=== PATIENT | female | born 1970 | race Caucasian/White ===

== ENCOUNTER → 2016-11-18 | Outpatient (CLI) | payer MEDICAID ==
[~2016-11-18] VITALS: Ht 165 cm; Wt 75.0 kg
[~2016-11-18] MED LIST: AZIT-21 PO; CALC-80 PO; CEFP500T4 PO; CETI5TAB6 PO; DIVA250T93 PO; ESTR0.3T PO; FLC1T PO; FLUT16SP22 NS; HUMIRA SQ; HYDR-3729 PO; HYDR1TAB66 PO; MDR10T; MTX2.5T PO; MULT-608 PO; OMG1KC PO; PARO20TA57 PO; POLY IRON; PROP1TAB77 PO; REMICADE; SIMV20TA3 PO; TRAZ50TA67 PO; VALA500T4 PO; VOLTAREN PO; inFLIXimab FOR IV 500 MG in NORMAL SALINE 250 ML IV SCH
[2016-11-18 11:17] LABS: MEAN PLATELET VOLUME 9.5 FL (7.4-10.4); RED BLOOD COUNT 4.11 10^6/uL (4.35-5.85); RED CELL DISTRIBUTION WIDTH 12.6 % (10.0-14.5); WHITE BLOOD COUNT 6.7 10^3/uL (4.3-11.0)
[2016-11-18 11:34] LABS: ALANINE AMINOTRANSFERASE 12 U/L (0-55); ALBUMIN 3.8 G/DL (3.2-4.5); ANION GAP 11 MMOL/L (5-14); ASPARTATE AMINO TRANSFERASE 17 U/L (5-34); BILIRUBIN,TOTAL 0.3 MG/DL (0.1-1.0); BLOOD UREA NITROGEN 7 MG/DL (7-18); BUN/CREATININE RATIO 9; CALCIUM 8.6 MG/DL (8.5-10.1); CARBON DIOXIDE 20 MMOL/L (21-32); CHLORIDE 105 MMOL/L (98-107); CREATININE SERUM 0.81 MG/DL (0.60-1.30); GFR ESTIMATED > 60; GLUCOSE 95 MG/DL (70-105); POTASSIUM 3.8 MMOL/L (3.6-5.0); SODIUM 136 MMOL/L (135-145); TOTAL PROTEIN 7.3 G/DL (6.4-8.2)
[2016-11-18 11:35] VITALS: BP 106/74
[2016-11-18 13:40] VITALS: BP 106/74
== END ==
LOC: SDC 10:36
PROVIDERS: ATTEND Family Medicine
DX: M05.79 Rheumatoid arthritis with rheumatoid factor of multiple sites without organ or systems involvement (principal)
CPT/HCPCS: 36415; 80053; 85027; 85652; 86141; 96365; 96366

== ENCOUNTER → 2017-01-13 | Outpatient (CLI) | payer MEDICAID ==
[~2017-01-13] VITALS: Ht 165 cm; Wt 75.0 kg
[~2017-01-13] MED LIST changes: +inFLIXimab 500 MG/NS 250 ML (EXCEL) IV ONE; -inFLIXimab FOR IV 500 MG in NORMAL SALINE 250 ML IV SCH
[2017-01-13 13:35] LABS: BASOPHILS % (AUTO) 1 % (0-10); EOSINOPHILS # (AUTO) 0.2 10^3/uL (0.0-0.3); EOSINOPHILS % (AUTO) 2 % (0-10); LYMPHOCYTES % (AUTO) 42 % (12-44); MEAN CORPUSCULAR HEMOGLOBIN 30 PG (25-34); MEAN CORPUSCULAR HGB CONC 33 G/DL (32-36); MEAN CORPUSCULAR VOLUME 91 FL (80-99); MEAN PLATELET VOLUME 9.2 FL (7.4-10.4); MONOCYTES # (AUTO) 0.6 X 10^3 (0.0-1.0); MONOCYTES % (AUTO) 9 % (0-12); NEUTROPHILS # (AUTO) 3.2 X 10^3 (1.8-7.8); NEUTROPHILS % (AUTO) 46 % (42-75); PLATELET COUNT 315 10^3/uL (130-400); RED CELL DISTRIBUTION WIDTH 12.4 % (10.0-14.5)
[2017-01-13 13:42] VITALS: BP 119/74
[2017-01-13 13:54] LABS: ALANINE AMINOTRANSFERASE 18 U/L (0-55); ALBUMIN 4.3 G/DL (3.2-4.5); ANION GAP 10 MMOL/L (5-14); ASPARTATE AMINO TRANSFERASE 25 U/L (5-34); BILIRUBIN,TOTAL 0.4 MG/DL (0.1-1.0); BLOOD UREA NITROGEN 5 MG/DL (7-18); BUN/CREATININE RATIO 6; CALCIUM 9.3 MG/DL (8.5-10.1); CARBON DIOXIDE 26 MMOL/L (21-32); CHLORIDE 99 MMOL/L (98-107); CREATININE SERUM 0.79 MG/DL (0.60-1.30); GFR ESTIMATED > 60; GLUCOSE 88 MG/DL (70-105); POTASSIUM 3.7 MMOL/L (3.6-5.0); SODIUM 135 MMOL/L (135-145); TOTAL PROTEIN 7.9 G/DL (6.4-8.2); hs C REACTIVE PROTEIN 0.69 MG/DL (0.00-0.50)
[2017-01-13 13:59] LABS: ERYTHROCYTE SEDIMENTATION RATE 42 MM/HR (0-20)
[2017-01-13 16:08] VITALS: BP 119/74
== END ==
LOC: EDSTATUS 09-13 13:00 → SDC 13:09
PROVIDERS: ATTEND Family Medicine
DX: M05.79 Rheumatoid arthritis with rheumatoid factor of multiple sites without organ or systems involvement (principal)
CPT/HCPCS: 36415; 80053; 85025; 85652; 86141; 96365; 96366

== ENCOUNTER → 2017-02-08 | Outpatient (CLI) | payer MEDICAID ==
[~2017-02-08] MED LIST changes: -inFLIXimab 500 MG/NS 250 ML (EXCEL) IV ONE
--- NOTE | 2017-02-10 16:10 | Diagnostic Imaging Report ---
EXAMINATION: Bilateral screening mammogram with a Computer Aided Detection (CAD) system. INDICATION: Screening. PERSONAL HISTORY: No current complaints stated on the questionnaire. COMPARISON: 09/30/2013. FINDINGS: The breasts are composed of heterogeneously dense parenchyma which may decrease mammographic sensitivity. There is no mass, architectural distortion, or suspicious cluster of calcifications. Allowing for technique and positional differences, no suspicious change is seen. IMPRESSION: Dense breasts with no definite change. ACR BI-RADS Category 2: Benign findings. Result letter will be mailed to the patient. Note: At least 10% of breast cancer is not imaged by mammography. Dictated on workstation # [id number]
== END ==
LOC: RAD 14:53
PROVIDERS: ATTEND Nurse Practitioner
DX: Z12.31 Encounter for screening mammogram for malignant neoplasm of breast (principal)
CPT/HCPCS: 77067

== ENCOUNTER → 2017-03-10 | Outpatient (CLI) | payer MEDICAID ==
[~2017-03-10] VITALS: Ht 162.6 cm; Wt 75.0 kg
[~2017-03-10] MED LIST changes: +inFLIXimab 500 MG/NS 250 ML (EXCEL) IV SCH
[2017-03-10 10:40] VITALS: BP 110/76
[2017-03-10 10:56] LABS: MEAN PLATELET VOLUME 9.4 FL (7.4-10.4); RED BLOOD COUNT 4.37 10^6/uL (4.35-5.85); WHITE BLOOD COUNT 6.7 10^3/uL (4.3-11.0)
[2017-03-10 11:04] LABS: ALANINE AMINOTRANSFERASE 14 U/L (0-55); ANION GAP 15 MMOL/L (5-14); ASPARTATE AMINO TRANSFERASE 24 U/L (5-34); BILIRUBIN,TOTAL 0.4 MG/DL (0.1-1.0); BLOOD UREA NITROGEN 10 MG/DL (7-18); BUN/CREATININE RATIO 11 (0-20); CALCIUM 9.3 MG/DL (8.5-10.1); CARBON DIOXIDE 22 MMOL/L (21-32); CHLORIDE 102 MMOL/L (98-107); CREATININE SERUM 0.89 MG/DL (0.60-1.30); GFR ESTIMATED > 60; GLUCOSE 104 MG/DL (70-105); HEMOLYSIS 87 (-100-29); ICTERUS 0.2 (-100-1.9); LIPEMIA 9 (-100-49); SODIUM 139 MMOL/L (135-145); TOTAL PROTEIN 8.2 GM/DL (6.4-8.2); hs C REACTIVE PROTEIN 0.85 MG/DL (0.00-0.50)
[2017-03-10 11:06] LABS: POTASSIUM 3.8 MMOL/L (3.6-5.0)
[2017-03-10 13:50] VITALS: BP 110/76
== END ==
LOC: SDC 10:22
PROVIDERS: ATTEND Internal Medicine Rheumatology
DX: M05.79 Rheumatoid arthritis with rheumatoid factor of multiple sites without organ or systems involvement (principal); Z79.899 Other long term (current) drug therapy
CPT/HCPCS: 36415; 80053; 85027; 85652; 86141; 96365; 96366

== ENCOUNTER → 2017-05-05 | Outpatient (CLI) | payer MEDICAID ==
[~2017-05-05] VITALS: Ht 162.6 cm; Wt 80.9 kg
[~2017-05-05] MED LIST changes: +ACET-77 PO; +BUSP10TA95 PO
[2017-05-05 13:44] VITALS: BP 121/69
[2017-05-05 13:48] LABS: MEAN PLATELET VOLUME 9.1 FL (7.4-10.4); RED BLOOD COUNT 3.94 10^6/uL (4.35-5.85); RED CELL DISTRIBUTION WIDTH 12.8 % (10.0-14.5); WHITE BLOOD COUNT 8.1 10^3/uL (4.3-11.0)
[2017-05-05 14:08] LABS: ALANINE AMINOTRANSFERASE 17 U/L (0-55); ALBUMIN 3.8 GM/DL (3.2-4.5); ANION GAP 11 MMOL/L (5-14); ASPARTATE AMINO TRANSFERASE 25 U/L (5-34); BILIRUBIN,TOTAL 0.3 MG/DL (0.1-1.0); BLOOD UREA NITROGEN 6 MG/DL (7-18); BUN/CREATININE RATIO 8; CALCIUM 9.1 MG/DL (8.5-10.1); CARBON DIOXIDE 23 MMOL/L (21-32); CHLORIDE 103 MMOL/L (98-107); CREATININE SERUM 0.76 MG/DL (0.60-1.30); GFR ESTIMATED > 60; GLUCOSE 96 MG/DL (70-105); POTASSIUM 3.6 MMOL/L (3.6-5.0); SODIUM 137 MMOL/L (135-145); TOTAL PROTEIN 7.1 GM/DL (6.4-8.2); hs C REACTIVE PROTEIN 0.88 MG/DL (0.00-0.50)
[2017-05-05 16:20] VITALS: BP 121/69
== END ==
LOC: SDC 13:19
PROVIDERS: ATTEND Family Medicine
DX: M05.79 Rheumatoid arthritis with rheumatoid factor of multiple sites without organ or systems involvement (principal); Z79.899 Other long term (current) drug therapy
CPT/HCPCS: 36415; 80053; 85027; 85652; 86141; 96365; 96366; 99211

== ENCOUNTER 2017-05-21 18:55 | Emergency (ER) | payer MEDICAID ==
[~2017-05-21] VITALS: Ht 167.6 cm; Wt 81.6 kg
[~2017-05-21 18:55] MED LIST changes: -inFLIXimab 500 MG/NS 250 ML (EXCEL) IV SCH
[2017-05-21] MEDS ORDERED: LACTATED RINGERS 1,000 ML IV ONE (19:37)
[2017-05-21 19:54] LABS: BILIRUBIN,URINE NEGATIVE (NEGATIVE); KETONES,URINE NEGATIVE (NEGATIVE); LEUKOCYTE ESTERASE ,URINE NEGATIVE (NEGATIVE); NITRITE,URINE NEGATIVE (NEGATIVE); PH,URINE 7 (5-9); PROTEIN,URINE NEGATIVE (NEGATIVE); UROBILINOGEN,URINE NORMAL (NORMAL)
[2017-05-21 20:00] LABS: SQUAMOUS EPITHELIAL CELL,UR 0-2 /HPF
[2017-05-21 20:01] LABS: BASOPHILS # (AUTO) 0.1 10^3/uL (0.0-0.1); BASOPHILS % (AUTO) 0 % (0-10); EOSINOPHILS # (AUTO) 0.2 10^3/uL (0.0-0.3); EOSINOPHILS % (AUTO) 2 % (0-10); LYMPHOCYTES # (AUTO) 2.1 X 10^3 (1.0-4.0); LYMPHOCYTES % (AUTO) 18 % (12-44); MEAN CORPUSCULAR HEMOGLOBIN 31 PG (25-34); MEAN CORPUSCULAR HGB CONC 33 G/DL (32-36); MEAN CORPUSCULAR VOLUME 92 FL (80-99); MEAN PLATELET VOLUME 8.9 FL (7.4-10.4); MONOCYTES # (AUTO) 1.2 X 10^3 (0.0-1.0); MONOCYTES % (AUTO) 11 % (0-12); NEUTROPHILS # (AUTO) 8.2 X 10^3 (1.8-7.8); NEUTROPHILS % (AUTO) 69 % (42-75); PLATELET COUNT 314 10^3/uL (130-400); RED BLOOD COUNT 3.62 10^6/uL (4.35-5.85); RED CELL DISTRIBUTION WIDTH 12.6 % (10.0-14.5); WHITE BLOOD COUNT 11.8 10^3/uL (4.3-11.0)
--- NOTE | 2017-05-21 20:21 | ED General ---
General Chief Complaint: General Problems/Pain Stated Complaint: FEVER/BODY ACHES Nursing Triage Note: PT TO ED 6 W/ C/O POSS FOOD POISONING X6 DAYS AGO, BETTER MONDAY BUT HAS HAD FEVER, BODYACHES, WORSE THIS AFTERNOON. REPORTS A FEVER OF "100.-SOMETHING" THIS AFTERNOON. NO OTHER C/O VOICED Nursing Sepsis Screen: No Definite Risk Source of Information: Patient History of Present Illness Time Seen by Provider: 19:30 Initial Comments C/O BODY ACHES C/O TEMP 101.6 AND SWEATS C/O SLIGHT NAUSEA, NO VOMITING--BUT ATE BREAKFAST, FRIED CHEESE STICKS FOR LUNCH DIARRHEA X 1 NO ABDOMINAL PAIN SYMPTOMS BEGAN ON MONDAY--STATES SYMPTOMS GET BETTER EVERY MORNING ON WAKING THEN STARTS FEELING WORSE THE DAY GOES ON WITH FEVER AND BODY ACHES TOOK HYDROCODONE X 1 THIS AM AND HAD 2 ALEVE AT 1530 URINE WAS DARK A FEW DAYS AGO, BUT HAS BEEN DRINKING MORE FLUIDS AND URINE IS NOW NORMAL--HAS BEEN DRINKING WATER --ATE LEAST SIX 16 OZ BOTTLES OF WATER, PLUS SWEET TEA PT HAS BEEN TO [facility] TODAY, THEN SHOPPING ALL AFTERNOON TODAY. PT STATES SHE HAS HAD PNEUMONIA IN THE PAST AND THIS FEELS THE SAME, BUT NO COUGH AND NO SHORTNESS OF BREATH PT IS ON REMICADE FOR RHEUMATOID ARTHRITIS THOUGHT HAD "FOOD POISONING" A COUPLE OF DAYS AGO--POSSIBLY FROM A CITIZEN OF [place] AND [place] RESTAURANT IN [facility] [place]. BUT PT DID NOT EAT THE SAME FOODS HIM HE HAD NAUSEA/DIARRHEA, FEVER, BODY ACHES HIS SYMPTOMS WERE GONE IN 2 DAYS PCP: M[facility], DR SMITH Allergies and Home Medications Allergies Coded Allergies: morphine (Unverified Allergy, Mild, 11/04/09) Home Medications Acetaminophen 500 Mg Tablet, 500 MG PO UD, #30 Prescribed by: TALA THOMPSON on 05/05/17 1343 Buspirone HCl 10 Mg Tablet, 10 MG PO HS, #30 Prescribed by: TALA THOMPSON on 05/05/17 1343 Calcium Carbonate/Vitamin D3 1 Each Tablet, 1 EACH PO BID, Ref 0 (Reported) Cetirizine Hcl 5 Mg Tablet, 5 MG PO DAILY, (Reported) Estrogens Conjugated 0.3 Mg Tab, 0.3 MG PO DAILY, (Reported) Folic Acid 1 Mg Tab, 1 EACH PO DAILY, Ref 0 (Reported) Hydrocodone/Acetaminophen 1 Each Tablet, 1 TAB PO TID PRN for PAIN, (Reported) Levofloxacin 500 Mg Tablet, 500 MG PO DAILY, #10 Prescribed by: KENNETH BERRY on 05/21/172101 Methotrexate 2.5 Mg Tab, 2 TAB PO WEEKLY, Ref 0 (Reported) TAKES ON MONDAY EACH WEEK Multivitamins 1 Tab Tablet, 1 TAB PO DAILY, Ref 0 (Reported) Paroxetine Hcl 20 Mg Tablet, 40 MG PO DAILY, Ref 0 (Reported) Simvastatin 20 Mg Tablet, 20 MG PO HS, (Reported) Trazodone Hcl 50 Mg Tablet, 50 MG PO HS, (Reported) Valacyclovir Hcl 500 Mg Tablet, 1 TAB PO DAILY, (Reported) Constitutional: see HPI, chills, fever, malaise, weakness EENTM: no symptoms reported Respiratory: no symptoms reported Cardiovascular: no symptoms reported Gastrointestinal: see HPI, No abdominal pain, loss of appetite, nausea, No vomiting Genitourinary: see HPI Musculoskeletal: see HPI (BODY ACHES) Skin: no symptoms reported Psychiatric/Neurological: No Symptoms Reported, Denies Headache Past Najfiqu-Sgrgzp-Aboxjb Hx Patient Social History Alcohol Use: Denies Use Recreational Drug Use: No Smoking Status: Never a Smoker Recent Foreign Travel: No Contact w/Someone Who Travel: No Recent Infectious Disease Expo: No Recent Hopitalizations: No Physical Abuse: No Sexual Abuse: No Mistreated: No Fear: No Immunizations Up To Date Tetanus Booster (TDap): Unknown Date of Pneumonia Vaccine: Nov 30, 2009 Date of Influenza Vaccine: Jul 19, 2016 Seasonal Allergies Seasonal Allergies: Yes Surgeries History of Surgeries: Yes Surgeries: Hysterectomy, Orthopedic, 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 Respiratory History of Respiratory Disorde: Yes Respiratory Disorders: Pneumonia Cardiovascular History of Cardiac Disorders: No Neurological History of Neurological Disord: No Reproductive System Hx Reproductive Disorders: Yes (ENDOMETRIOSIS) Sexually Transmitted Disease: Yes (HERPES) 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, 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 Genitourinary History of Genitourinary Disor: No Gastrointestinal History of Gastrointestinal Di: No Musculoskeletal History of Musculoskeletal Dis: Yes Musculoskeletal Disorders: Rheumatoid Arthritis Endocrine History of Endocrine Disorders: No HEENT History of HEENT Disorders: No Loss of Vision: Bilateral Hearing Impairment: Denies Cancer History of Cancer: No Psychosocial History of Psychiatric Problem: Yes Behavioral Health Disorders: Anxiety Suicide Risk Score: 0 Integumentary History of Skin or Integumenta: No Blood Transfusions History of Blood Disorders: Yes (ANEMIA) Physical Exam Vital Signs Vital Sign - Last 12Hours 05/21/17 19:14 Temp 96.4 Pulse 99 Resp 20 B/P (MAP) 137/74 Pulse Ox 96 O2 Delivery Room Air Capillary Refill : Less Than 3 Seconds General Appearance: No Apparent Distress, WD/WN, Other (TALKS NON-STOP AT LENGTH) HEENT: PERRL/EOMI, TMs Normal, Normal ENT Inspection, Pharynx Normal Neck: Full Range of Motion, Normal Inspection, Non Tender, Supple Respiratory: Normal Breath Sounds, No Accessory Muscle Use, No Respiratory Distress Cardiovascular: Regular Rate, Rhythm, No Edema, No JVD, No Murmur, Normal Peripheral Pulses Gastrointestinal: Normal Bowel Sounds, No Organomegaly, No Pulsatile Mass, Non Tender, Soft Back: Normal Inspection, No CVA Tenderness Extremity: Normal Range of Motion, Non Tender, No Calf Tenderness, No Pedal Edema, Other (ARTHRITIC CHANGES TO HANDS/FINGERS) Neurologic/Psychiatric: Alert, Oriented x3, No Motor/Sensory Deficits, Normal Mood/Affect, 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 Norm as Tested Skin: Normal Color, Warm/Dry Focused Exam Evaluation Lactate Level Lactic Acid Level Progress/Results/Core Measures Results/Orders Lab Results My Orders Medications Given in ED Vital Signs/I&O Blood Pressure Mean: 95 Progress Note : Progress Note NO DETERIORATION IN PT'S CONDITION DURING ER STAY PT WANTS TO GO HOME / IS COMFORTABLE GOING HOME Diagnostic Imaging Comments CXR--RLL INFILTRATE, PENDING RADIOLOGIST REVIEW Reviewed: Reviewed by Me Departure Impression Impression: Primary Impression: Pneumonia Additional Impressions: Hypokalemia Hypomagnesemia RA ON REMICADE Disposition: HOME, SELF-CARE Condition: Stable Departure-Patient Inst. Referrals: JP SMITH MD (PCP/Family) Primary Care Physician Patient Instructions: Community-Acquired Pneumonia, Adult (DC) Add. Discharge Instructions: EQUAL AMOUNTS OF WATER AND GATORADE--ENOUGH SO YOU ARE URINATING EVERY 2-3 HOURS WHILE AWAKE ALTERNATE TYLENOL And MOTRIN EVERY 2-3 HOURS FOR FEVER FOLLOW UP WITH DR. SMITH IN 2-3 DAYS FOR FURTHER CARE RETURN TO ER IF WORSE All discharge instructions reviewed with patient and/or family. Voiced understanding. Scripts Levofloxacin (Levaquin) 500 Mg Tablet 500 MG PO DAILY for INFECTION, #10 TAB Prov: KENNETH BERRY DO 05/21/17 KENNETH BERRY DO May 21, 2017 20:21
[2017-05-21 20:22] LABS: ALANINE AMINOTRANSFERASE 34 U/L (0-55); ALBUMIN 3.6 GM/DL (3.2-4.5); AMYLASE 56 U/L (25-125); ANION GAP 10 MMOL/L (5-14); ASPARTATE AMINO TRANSFERASE 58 U/L (5-34); BILIRUBIN,TOTAL 0.4 MG/DL (0.1-1.0); BLOOD UREA NITROGEN 5 MG/DL (7-18); BUN/CREATININE RATIO 6; CALCIUM 9.2 MG/DL (8.5-10.1); CARBON DIOXIDE 25 MMOL/L (21-32); CHLORIDE 104 MMOL/L (98-107); CREATININE SERUM 0.77 MG/DL (0.60-1.30); GFR ESTIMATED > 60; GLUCOSE 114 MG/DL (70-105); LIPASE 36 U/L (8-78); MAGNESIUM 1.7 MG/DL (1.8-2.4); POTASSIUM 3.2 MMOL/L (3.6-5.0); SODIUM 139 MMOL/L (135-145); TOTAL PROTEIN 7.5 GM/DL (6.4-8.2)
[2017-05-21] MEDS ORDERED: KCL 10 MEQ TAB (MICRO K) PO ONE (20:45)
[2017-05-21] MEDS ORDERED: MAGNESIUM OXIDE (MAG-OX)400 MG TAB PO ONE (20:45)
[2017-05-21] MEDS ORDERED: LEVOFLOXACIN 500 MG TAB (LEVAQUIN) PO ONE (21:00)
[2017-05-21] MEDS ORDERED: cefTRIAXone INJECTION 1,000 MG in NS (IVPB) 50 ML IV ONE (21:00)
[2017-05-21] MEDS ORDERED: LEVO500T2 PO (21:02)
[2017-05-21 21:35] VITALS: BP 132/70
--- NOTE | 2017-05-21 21:39 | Diagnostic Imaging Report ---
EXAMINATION: PA and lateral chest. INDICATION: Bodyaches and nausea. COMPARISON: Prior study from March 14, 2015. FINDINGS: When compared to the prior examination, there are some new patchy opacities demonstrated within the mid right lung on the frontal view. There also appear to be some alveolar infiltrates within the right middle lobe. Left lung demonstrates some chronic interstitial prominence but is otherwise clear. There is no effusion. There is no pneumothorax. The heart size and mediastinal contours are appropriate. Advanced arthritic changes are demonstrated within the shoulders, compatible with the patient's history of rheumatoid arthritis. IMPRESSION: Abnormal alveolar opacities within the mid right lung on the frontal view and within the right middle lobe are suggestive of pneumonia. The findings are superimposed on some background chronic prominence of the interstitial markings. Advanced inflammatory arthritic changes are demonstrated throughout both shoulders. The pulmonary findings should be followed to resolution. Dictated by: Dictated on workstation # [id number]
== END 2017-05-21 21:34 | disposition home or self-care (01) ==
LOC: EDUNIT# 18:55 → ER 18:56
DX: J18.9 Pneumonia, unspecified organism (principal); F41.9 Anxiety disorder, unspecified; H54.0 Blindness, both eyes; M06.9 Rheumatoid arthritis, unspecified; Z98.51 Tubal ligation status; Z90.710 Acquired absence of both cervix and uterus; Z86.19 Personal history of other infectious and parasitic diseases
CPT/HCPCS: 36415; 71020; 80053; 81000; 82150; 83605; 83690; 83735; 85025; 87040; 96361; 96374

== ENCOUNTER → 2017-07-13 | Outpatient (CLI) | payer MEDICAID ==
[~2017-07-13] VITALS: Ht 167.6 cm; Wt 81.8 kg
[~2017-07-13] MED LIST changes: +INFLIXIMAB DYYB IV SCH; +LEVO500T2 PO; +NORMAL SALINE IV SCH; +inFLIXimab FOR IV 500 MG in NORMAL SALINE 250 ML IV SCH
[2017-07-13 12:35] VITALS: BP 114/80
[2017-07-13 12:40] VITALS: BP 114/80
[2017-07-13 13:13] LABS: MEAN PLATELET VOLUME 9.1 FL (7.4-10.4); RED BLOOD COUNT 4.12 10^6/uL (4.35-5.85); WHITE BLOOD COUNT 7.9 10^3/uL (4.3-11.0)
[2017-07-13 13:35] LABS: ALANINE AMINOTRANSFERASE 18 U/L (0-55); ANION GAP 6 MMOL/L (5-14); ASPARTATE AMINO TRANSFERASE 25 U/L (5-34); BILIRUBIN,TOTAL 0.4 MG/DL (0.1-1.0); BLOOD UREA NITROGEN 6 MG/DL (7-18); BUN/CREATININE RATIO 8; CALCIUM 9.4 MG/DL (8.5-10.1); CARBON DIOXIDE 29 MMOL/L (21-32); CHLORIDE 101 MMOL/L (98-107); CREATININE SERUM 0.78 MG/DL (0.60-1.30); GFR ESTIMATED > 60; GLUCOSE 102 MG/DL (70-105); POTASSIUM 3.4 MMOL/L (3.6-5.0); SODIUM 136 MMOL/L (135-145); TOTAL PROTEIN 7.7 GM/DL (6.4-8.2); hs C REACTIVE PROTEIN 0.58 MG/DL (0.00-0.50)
--- NOTE | 2017-07-13 19:06 | Diagnostic Imaging Report ---
INDICATION: Followup pneumonia COMPARISON: 05/21/2017 FINDINGS: Two views of the chest were obtained. Heart size is normal. The pulmonary vessels appear unremarkable. There is no pneumothorax or pleural fluid suspected. There is no mediastinal widening. Aeration of the lungs has shown some improvement from the prior study with decrease in the extent of bilateral infiltrates. There is suggestion of some minimal persistent infiltrate in the medial lung bases as well as within the right upper lobe. No new pulmonary parenchymal abnormality is seen. Chronic arthropathy changes of the shoulders are again noted. IMPRESSION: Appearance of the chest is improved since May with decrease in the extent of bilateral pulmonary infiltrates. There does appear to be some mild persistent infiltrate at the medial lung bases and in the right upper lobe. An additional followup radiograph is recommended. No significant new abnormality is demonstrated. Dictated by: Dictated on workstation # [id number]
== END ==
LOC: SDC 12:35
PROVIDERS: ATTEND Family Medicine
DX: M05.79 Rheumatoid arthritis with rheumatoid factor of multiple sites without organ or systems involvement (principal); Z79.899 Other long term (current) drug therapy
CPT/HCPCS: 36415; 71020; 80053; 85027; 85652; 86141; 96365; 96366

== ENCOUNTER → 2017-08-28 | Outpatient (CLI) | payer MEDICAID ==
[~2017-08-28] VITALS: Ht 167.6 cm; Wt 81.8 kg
[~2017-08-28] MED LIST changes: -inFLIXimab FOR IV 500 MG in NORMAL SALINE 250 ML IV SCH
[2017-08-28 13:30] VITALS: BP 113/75
== END ==
LOC: SDC 13:21
PROVIDERS: ATTEND Family Medicine
DX: M05.79 Rheumatoid arthritis with rheumatoid factor of multiple sites without organ or systems involvement (principal); Z79.899 Other long term (current) drug therapy
CPT/HCPCS: 96365; 96366

== ENCOUNTER → 2017-10-09 | Outpatient (CLI) | payer MEDICAID ==
[~2017-10-09] VITALS: Ht 167.6 cm; Wt 81.8 kg
[2017-10-09 13:10] VITALS: BP 118/76
[2017-10-09 14:20] LABS: RED BLOOD COUNT 3.85 10^6/uL (4.35-5.85); WHITE BLOOD COUNT 7.8 10^3/uL (4.3-11.0)
[2017-10-09 14:41] LABS: ALANINE AMINOTRANSFERASE 22 U/L (0-55); ALBUMIN 3.8 GM/DL (3.2-4.5); ALKALINE PHOSPHATASE 56 U/L (40-136); BILIRUBIN,TOTAL 0.4 MG/DL (0.1-1.0); BUN/CREATININE RATIO 8; CALCIUM 9.1 MG/DL (8.5-10.1); CARBON DIOXIDE 28 MMOL/L (21-32); CHLORIDE 100 MMOL/L (98-107); CREATININE SERUM 0.75 MG/DL (0.60-1.30); GFR ESTIMATED > 60; GLUCOSE 93 MG/DL (70-105); POTASSIUM 3.8 MMOL/L (3.6-5.0); SODIUM 137 MMOL/L (135-145); TOTAL PROTEIN 7.5 GM/DL (6.4-8.2)
== END ==
LOC: SDC 13:04
PROVIDERS: ATTEND Family Medicine
DX: M05.79 Rheumatoid arthritis with rheumatoid factor of multiple sites without organ or systems involvement (principal); Z79.899 Other long term (current) drug therapy
CPT/HCPCS: 36415; 80053; 85027; 85652; 86141; 96365; 96366

== ENCOUNTER → 2017-11-20 | Outpatient (CLI) | payer MEDICAID ==
[~2017-11-20] VITALS: Ht 167.6 cm; Wt 78.5 kg
[2017-11-20 15:10] VITALS: BP 120/77
[2017-11-20 16:26] VITALS: BP 120/77
== END ==
LOC: SDC 13:20
PROVIDERS: ATTEND Family Medicine
DX: M05.79 Rheumatoid arthritis with rheumatoid factor of multiple sites without organ or systems involvement (principal); Z79.899 Other long term (current) drug therapy

== ENCOUNTER → 2017-11-20 | Outpatient (CLI) | payer MEDICAID ==
[~2017-11-20] VITALS: Ht 167.6 cm; Wt 78.5 kg
[~2017-11-20] MED LIST changes: -INFLIXIMAB DYYB IV SCH; -NORMAL SALINE IV SCH
[2017-11-20 14:29] LABS: CHOLESTEROL 207 MG/DL (< 200); HDL CHOLESTEROL 78 MG/DL (40-60); TRIGLYCERIDES 115 MG/DL (<150); VLDL CHOLESTEROL 23 MG/DL (5-40)
[2017-11-20 15:01] VITALS: BP 120/77
== END ==
LOC: SDC 13:24
PROVIDERS: ATTEND Family Medicine
DX: E78.5 Hyperlipidemia, unspecified (principal)
CPT/HCPCS: 36415; 80061

== ENCOUNTER → 2018-02-19 | Outpatient (CLI) | payer MEDICAID ==
[~2018-02-19] VITALS: Ht 167.6 cm; Wt 78.5 kg
[~2018-02-19] MED LIST changes: +INFLIXIMAB DYYB IV SCH; +NORMAL SALINE IV SCH
[2018-02-19 13:13] VITALS: BP 110/77
== END ==
LOC: SDC 13:06
PROVIDERS: ATTEND Family Medicine
DX: M05.79 Rheumatoid arthritis with rheumatoid factor of multiple sites without organ or systems involvement (principal); Z79.899 Other long term (current) drug therapy
CPT/HCPCS: 96365; 96366

== ENCOUNTER → 2018-04-04 | Outpatient (CLI) | payer MEDICAID ==
[~2018-04-04] VITALS: Ht 167.6 cm; Wt 78.5 kg
[~2018-04-04] MED LIST changes: +INFLIXIMAB DYYB IV ONE; -INFLIXIMAB DYYB IV SCH; +NORMAL SALINE IV ONE; -NORMAL SALINE IV SCH
[2018-04-04 13:04] VITALS: BP_SYST 0; BP_SYST 114; BP_DIAS 0; BP_DIAS 71
[2018-04-04 13:34] LABS: HEMOGLOBIN 12.8 G/DL (11.5-16.0); MEAN PLATELET VOLUME 8.7 FL (7.4-10.4); RED BLOOD COUNT 4.1 10^6/uL (4.35-5.85)
[2018-04-04 14:00] LABS: ALANINE AMINOTRANSFERASE 15 U/L (0-55); ALBUMIN 4.1 GM/DL (3.2-4.5); ALKALINE PHOSPHATASE 51 U/L (40-136); BILIRUBIN,TOTAL 0.3 MG/DL (0.1-1.0); BUN/CREATININE RATIO 9; CARBON DIOXIDE 28 MMOL/L (21-32); CHLORIDE 102 MMOL/L (98-107); CREATININE SERUM 0.81 MG/DL (0.60-1.30); GFR ESTIMATED > 60; GLUCOSE 104 MG/DL (70-105); POTASSIUM 3.8 MMOL/L (3.6-5.0); SODIUM 137 MMOL/L (135-145); TOTAL PROTEIN 7.7 GM/DL (6.4-8.2)
== END ==
LOC: SDC 12:58
PROVIDERS: ATTEND Family Medicine
DX: M06.9 Rheumatoid arthritis, unspecified (principal); Z79.899 Other long term (current) drug therapy
CPT/HCPCS: 36415; 80053; 85027; 85652; 86141; 96365; 96366

== ENCOUNTER → 2018-07-12 | Outpatient (CLI) | payer MEDICAID ==
[~2018-07-12] VITALS: Ht 167.6 cm; Wt 78.5 kg
[~2018-07-12] MED LIST changes: +INFLIXIMAB DYYB IV SCH; +NORMAL SALINE IV SCH
[2018-07-12 13:15] VITALS: BP_SYST 100; BP_SYST 108; BP_DIAS 63
[2018-07-12 13:40] LABS: HEMOGLOBIN 12.3 G/DL (11.5-16.0); MEAN PLATELET VOLUME 9.1 FL (7.4-10.4); RED BLOOD COUNT 3.99 10^6/uL (4.35-5.85); RED CELL DISTRIBUTION WIDTH 13.4 % (10.0-14.5); WHITE BLOOD COUNT 11.3 10^3/uL (4.3-11.0)
[2018-07-12 13:55] LABS: ALANINE AMINOTRANSFERASE 16 U/L (0-55); ALBUMIN 4.2 GM/DL (3.2-4.5); ALKALINE PHOSPHATASE 54 U/L (40-136); BILIRUBIN,TOTAL 0.5 MG/DL (0.1-1.0); BUN/CREATININE RATIO 7; CALCIUM 9.1 MG/DL (8.5-10.1); CARBON DIOXIDE 25 MMOL/L (21-32); CHLORIDE 102 MMOL/L (98-107); CREATININE SERUM 0.82 MG/DL (0.60-1.30); GFR ESTIMATED > 60; GLUCOSE 110 MG/DL (70-105); POTASSIUM 3.4 MMOL/L (3.6-5.0); SODIUM 138 MMOL/L (135-145); TOTAL PROTEIN 8.1 GM/DL (6.4-8.2)
== END ==
LOC: SDC 13:09
PROVIDERS: ATTEND Family Medicine
DX: M05.70 Rheumatoid arthritis with rheumatoid factor of unspecified site without organ or systems involvement (principal); Z79.899 Other long term (current) drug therapy
CPT/HCPCS: 36415; 80053; 85027; 85652; 86141; 96365; 96366; Q5102

== ENCOUNTER 2018-08-23 13:14 | Outpatient (CLI) | payer MEDICAID ==
[~2018-08-23] VITALS: Ht 167.6 cm; Wt 78.5 kg
[~2018-08-23 13:14] MED LIST changes: -INFLIXIMAB DYYB IV ONE; -INFLIXIMAB DYYB IV SCH; -NORMAL SALINE IV ONE; -NORMAL SALINE IV SCH
[2018-08-23] MEDS ORDERED: INFLIXIMAB DYYB IV SCH (13:29)
[2018-08-23] MEDS ORDERED: NORMAL SALINE IV SCH (13:29)
[2018-08-23 13:52] LABS: HEMOGLOBIN 12.1 G/DL (11.5-16.0); RED BLOOD COUNT 3.98 10^6/uL (4.35-5.85); RED CELL DISTRIBUTION WIDTH 12.8 % (10.0-14.5); WHITE BLOOD COUNT 6.8 10^3/uL (4.3-11.0)
[2018-08-23 14:18] LABS: ALANINE AMINOTRANSFERASE 13 U/L (0-55); ALBUMIN 4.2 GM/DL (3.2-4.5); ALKALINE PHOSPHATASE 52 U/L (40-136); BILIRUBIN,TOTAL 0.3 MG/DL (0.1-1.0); BUN/CREATININE RATIO 8; CALCIUM 9.6 MG/DL (8.5-10.1); CARBON DIOXIDE 26 MMOL/L (21-32); CHLORIDE 103 MMOL/L (98-107); CREATININE SERUM 0.74 MG/DL (0.60-1.30); GFR ESTIMATED > 60; GLUCOSE 87 MG/DL (70-105); POTASSIUM 3.8 MMOL/L (3.6-5.0); SODIUM 138 MMOL/L (135-145); TOTAL PROTEIN 7.7 GM/DL (6.4-8.2)
[2018-08-23 15:50] VITALS: BP 128/80
== END 2018-08-23 15:50 | disposition home or self-care (01) ==
LOC: SDC 13:14
PROVIDERS: ATTEND Family Medicine
DX: M05.70 Rheumatoid arthritis with rheumatoid factor of unspecified site without organ or systems involvement (principal); Z79.899 Other long term (current) drug therapy
CPT/HCPCS: 36415; 80053; 85027; 85652; 86141; Q5102

== ENCOUNTER → 2018-10-04 | Outpatient (CLI) | payer MEDICAID ==
[~2018-10-04] VITALS: Ht 167.6 cm; Wt 78.5 kg
[~2018-10-04] MED LIST changes: +INFLIXIMAB DYYB IV SCH; +NORMAL SALINE IV SCH
[2018-10-04 13:37] LABS: HEMOGLOBIN 11.9 G/DL (11.5-16.0); MEAN PLATELET VOLUME 8.9 FL (7.4-10.4); RED BLOOD COUNT 4.02 10^6/uL (4.35-5.85); RED CELL DISTRIBUTION WIDTH 13.5 % (10.0-14.5); WHITE BLOOD COUNT 7.7 10^3/uL (4.3-11.0)
[2018-10-04 14:05] LABS: ALANINE AMINOTRANSFERASE 14 U/L (0-55); ALKALINE PHOSPHATASE 62 U/L (40-136); BILIRUBIN,TOTAL 0.4 MG/DL (0.1-1.0); BUN/CREATININE RATIO 8; CALCIUM 10.3 MG/DL (8.5-10.1); CARBON DIOXIDE 27 MMOL/L (21-32); CHLORIDE 103 MMOL/L (98-107); GFR ESTIMATED > 60; GLUCOSE 94 MG/DL (70-105); SODIUM 139 MMOL/L (135-145); TOTAL PROTEIN 8.1 GM/DL (6.4-8.2)
[2018-10-04 15:49] VITALS: BP 119/64
== END ==
LOC: SDC 13:03
PROVIDERS: ATTEND Family Medicine
DX: M06.9 Rheumatoid arthritis, unspecified (principal); Z79.899 Other long term (current) drug therapy
CPT/HCPCS: 36415; 80053; 85027; 85652; 86141; Q5102

== ENCOUNTER 2019-02-21 13:22 | Outpatient (RCR) | payer MEDICAID ==
[2018-11-26 13:47] LABS: HEMOGLOBIN 11.9 G/DL (11.5-16.0); MEAN PLATELET VOLUME 9.3 FL (7.4-10.4); RED CELL DISTRIBUTION WIDTH 13.5 % (10.0-14.5); WHITE BLOOD COUNT 7.8 10^3/uL (4.3-11.0)
[2018-11-26 14:18] LABS: ALANINE AMINOTRANSFERASE 25 U/L (0-55); ALBUMIN 4.1 GM/DL (3.2-4.5); ALKALINE PHOSPHATASE 43 U/L (40-136); BILIRUBIN,TOTAL 0.5 MG/DL (0.1-1.0); BUN/CREATININE RATIO 11; CALCIUM 8.9 MG/DL (8.5-10.1); CARBON DIOXIDE 24 MMOL/L (21-32); CHLORIDE 105 MMOL/L (98-107); CREATININE SERUM 0.83 MG/DL (0.60-1.30); GFR ESTIMATED > 60; GLUCOSE 104 MG/DL (70-105); POTASSIUM 3.8 MMOL/L (3.6-5.0); SODIUM 140 MMOL/L (135-145); TOTAL PROTEIN 7.7 GM/DL (6.4-8.2)
[2018-11-26 16:05] VITALS: BP 119/65
[2019-01-10] MEDS: INFLIXIMAB DYYB IV SCH ×2 (14:05)
[2019-01-10] MEDS: SODIUM CHLORIDE IV SCH ×2 (14:05)
[2019-01-10 15:52] LABS: HEMOGLOBIN 12.1 G/DL (11.5-16.0); MEAN PLATELET VOLUME 9.8 FL (7.4-10.4); RED CELL DISTRIBUTION WIDTH 13.9 % (10.0-14.5); WHITE BLOOD COUNT 7.1 10^3/uL (4.3-11.0)
[2019-01-10 16:08] LABS: ALANINE AMINOTRANSFERASE 23 U/L (0-55); ALBUMIN 4.2 GM/DL (3.2-4.5); ALKALINE PHOSPHATASE 48 U/L (40-136); BILIRUBIN,TOTAL 0.4 MG/DL (0.1-1.0); BUN/CREATININE RATIO 9; CALCIUM 9.3 MG/DL (8.5-10.1); CARBON DIOXIDE 25 MMOL/L (21-32); CHLORIDE 104 MMOL/L (98-107); CREATININE SERUM 0.81 MG/DL (0.60-1.30); GFR ESTIMATED > 60; GLUCOSE 113 MG/DL (70-105); POTASSIUM 3.6 MMOL/L (3.6-5.0); SODIUM 138 MMOL/L (135-145); TOTAL PROTEIN 7.8 GM/DL (6.4-8.2)
[2019-01-10 16:25] VITALS: BP 107/73
[~2019-02-21] VITALS: Ht 167.6 cm; Wt 78.5 kg
[~2019-02-21 13:22] MED LIST changes: +INFLIXIMAB DYYB IV ONE; -INFLIXIMAB DYYB IV SCH; +NORMAL SALINE IV ONE; -NORMAL SALINE IV SCH
[2019-02-21 13:42] LABS: HEMOGLOBIN 12.6 G/DL (11.5-16.0); MEAN PLATELET VOLUME 8.9 FL (7.4-10.4); RED CELL DISTRIBUTION WIDTH 14.1 % (10.0-14.5); WHITE BLOOD COUNT 8.1 10^3/uL (4.3-11.0)
[2019-02-21 13:45] VITALS: BP 123/77
[2019-02-21] MEDS: SODIUM CHLORIDE IV SCH ×2 (14:00)
[2019-02-21] MEDS: INFLIXIMAB DYYB IV SCH ×2 (14:00)
[2019-02-21 14:09] LABS: ALANINE AMINOTRANSFERASE 15 U/L (0-55); ALBUMIN 4.4 GM/DL (3.2-4.5); ALKALINE PHOSPHATASE 52 U/L (40-136); BILIRUBIN,TOTAL 0.4 MG/DL (0.1-1.0); BUN/CREATININE RATIO 7; CALCIUM 9.7 MG/DL (8.5-10.1); CARBON DIOXIDE 27 MMOL/L (21-32); CHLORIDE 103 MMOL/L (98-107); CREATININE SERUM 0.81 MG/DL (0.60-1.30); GFR ESTIMATED > 60; GLUCOSE 77 MG/DL (70-105); POTASSIUM 3.5 MMOL/L (3.6-5.0); SODIUM 139 MMOL/L (135-145); TOTAL PROTEIN 8.4 GM/DL (6.4-8.2)
== END 2019-02-24 | disposition home or self-care (01) ==
LOC: SDC 13:22
PROVIDERS: ATTEND Family Medicine
DX: M06.9 Rheumatoid arthritis, unspecified (principal); Z79.899 Other long term (current) drug therapy
CPT/HCPCS: 36415; 80053; 85027; 85652; 86141; 96365; 96366; Q5102

== ENCOUNTER → 2019-04-04 | Outpatient (CLI) | payer MEDICAID ==
[~2019-04-04] VITALS: Ht 167.6 cm; Wt 78.5 kg
[2019-04-04 15:30] VITALS: BP 119/69
[2019-04-04 16:35] LABS: BASOPHILS # (AUTO) 0.1 10^3/uL (0.0-0.1); BASOPHILS % (AUTO) 1 % (0-10); EOSINOPHILS # (AUTO) 0.2 10^3/uL (0.0-0.3); EOSINOPHILS % (AUTO) 3 % (0-10); HEMATOCRIT 37 % (35-52); HEMOGLOBIN 12.2 G/DL (11.5-16.0); LYMPHOCYTES # (AUTO) 3.1 X 10^3 (1.0-4.0); LYMPHOCYTES % (AUTO) 39 % (12-44); MEAN CORPUSCULAR HEMOGLOBIN 30 PG (25-34); MEAN CORPUSCULAR HGB CONC 33 G/DL (32-36); MEAN CORPUSCULAR VOLUME 92 FL (80-99); MEAN PLATELET VOLUME 10.4 FL (7.4-10.4); MONOCYTES # (AUTO) 0.8 X 10^3 (0.0-1.0); MONOCYTES % (AUTO) 10 % (0-12); NEUTROPHILS # (AUTO) 3.7 X 10^3 (1.8-7.8); NEUTROPHILS % (AUTO) 47 % (42-75); PLATELET COUNT 330 10^3/uL (130-400); WHITE BLOOD COUNT 7.7 10^3/uL (4.3-11.0)
[2019-04-04 16:49] LABS: ALANINE AMINOTRANSFERASE 12 U/L (0-55); ALBUMIN 4.1 GM/DL (3.2-4.5); ALKALINE PHOSPHATASE 50 U/L (40-136); BILIRUBIN,TOTAL 0.3 MG/DL (0.1-1.0); BUN/CREATININE RATIO 10; CALCIUM 9.5 MG/DL (8.5-10.1); CARBON DIOXIDE 28 MMOL/L (21-32); CHLORIDE 104 MMOL/L (98-107); CREATININE SERUM 0.81 MG/DL (0.60-1.30); GFR ESTIMATED > 60; GLUCOSE 96 MG/DL (70-105); POTASSIUM 3.6 MMOL/L (3.6-5.0); SODIUM 138 MMOL/L (135-145); TOTAL PROTEIN 7.8 GM/DL (6.4-8.2)
[2019-04-04 16:54] LABS: ERYTHROCYTE SEDIMENTATION RATE 28 MM/HR (0-30)
== END ==
LOC: SDC 13:09
PROVIDERS: ATTEND Family Medicine
DX: M05.79 Rheumatoid arthritis with rheumatoid factor of multiple sites without organ or systems involvement (principal); Z79.899 Other long term (current) drug therapy
CPT/HCPCS: 36415; 80053; 85025; 85652; 86141; 96365; Q5102

== ENCOUNTER 2019-07-03 13:05 | Outpatient (CLI) | payer MEDICAID ==
[~2019-07-03 13:05] MED LIST changes: -INFLIXIMAB DYYB IV ONE; -NORMAL SALINE IV ONE
[2019-07-03 13:10] VITALS: BP 121/68
[2019-07-03] MEDS ORDERED: INFLIXIMAB DYYB IV ONE (13:31)
[2019-07-03] MEDS ORDERED: NORMAL SALINE IV ONE (13:31)
[2019-07-03 14:52] LABS: HEMOGLOBIN 11.4 G/DL (11.5-16.0); RED CELL DISTRIBUTION WIDTH 13.5 % (10.0-14.5); WHITE BLOOD COUNT 7.6 10^3/uL (4.3-11.0)
[2019-07-03 15:16] LABS: ALANINE AMINOTRANSFERASE 14 U/L (0-55); ALBUMIN 3.8 GM/DL (3.2-4.5); ALKALINE PHOSPHATASE 51 U/L (40-136); BILIRUBIN,TOTAL 0.3 MG/DL (0.1-1.0); BUN/CREATININE RATIO 11; CALCIUM 8.8 MG/DL (8.5-10.1); CARBON DIOXIDE 29 MMOL/L (21-32); CHLORIDE 105 MMOL/L (98-107); CREATININE SERUM 0.79 MG/DL (0.60-1.30); GFR ESTIMATED > 60; GLUCOSE 91 MG/DL (70-105); POTASSIUM 3.4 MMOL/L (3.6-5.0); SODIUM 140 MMOL/L (135-145); TOTAL PROTEIN 7.2 GM/DL (6.4-8.2)
== END 2019-07-03 16:50 | disposition home or self-care (01) ==
LOC: SDC 13:05
PROVIDERS: ATTEND Family Medicine
DX: M05.79 Rheumatoid arthritis with rheumatoid factor of multiple sites without organ or systems involvement (principal); Z79.899 Other long term (current) drug therapy
CPT/HCPCS: 36415; 80053; 85027; 85652; 86141; 96365; 96366; Q5102

== ENCOUNTER → 2019-07-16 | Outpatient (CLI) | payer MEDICAID ==
--- NOTE | 2019-07-16 15:43 | Diagnostic Imaging Report ---
INDICATION: Routine screening. COMPARISON: 02/08/2017 and 09/30/2013. TECHNIQUE: 2D and 3D bilateral screening mammography was performed with CAD. FINDINGS: Both breasts remain heterogeneously dense, limiting the sensitivity of mammography. The parenchymal pattern is stable. No mass or malignant appearing microcalcifications are seen. The axillae are unremarkable. IMPRESSION: No mammographic features suspicious for malignancy are identified. ACR BI-RADS Category 1: Negative. Result letter will be mailed to the patient. Note: At least 10% of breast cancer is not imaged by mammography. Dictated by: Dictated on workstation # [id number]
== END ==
LOC: RAD 13:20
PROVIDERS: ATTEND Nurse Practitioner
DX: Z12.31 Encounter for screening mammogram for malignant neoplasm of breast (principal); Z78.0 Asymptomatic menopausal state
CPT/HCPCS: 77067

== ENCOUNTER → 2019-08-14 | Outpatient (CLI) | payer MEDICAID ==
[~2019-08-14] VITALS: Ht 165.1 cm; Wt 78.2 kg
[~2019-08-14] MED LIST changes: +INFLIXIMAB DYYB IV ONE; +NORMAL SALINE IV ONE
[2019-08-14 13:05] VITALS: BP 120/69
== END ==
LOC: SDC 12:57
PROVIDERS: ATTEND Family Medicine
DX: M05.79 Rheumatoid arthritis with rheumatoid factor of multiple sites without organ or systems involvement (principal); Z79.899 Other long term (current) drug therapy
CPT/HCPCS: 96365; Q5102

== ENCOUNTER → 2019-09-25 | Outpatient (CLI) | payer MEDICAID ==
[~2019-09-25] VITALS: Ht 165.1 cm; Wt 78.2 kg
[2019-09-25 14:03] LABS: HEMOGLOBIN 12.4 G/DL (11.5-16.0); MEAN PLATELET VOLUME 9.1 FL (7.4-10.4); RED CELL DISTRIBUTION WIDTH 13.1 % (10.0-14.5); WHITE BLOOD COUNT 6.6 10^3/uL (4.3-11.0)
[2019-09-25 14:17] LABS: ALANINE AMINOTRANSFERASE 18 U/L (0-55); ALBUMIN 4.2 GM/DL (3.2-4.5); ALKALINE PHOSPHATASE 70 U/L (40-136); BILIRUBIN,TOTAL 0.3 MG/DL (0.1-1.0); BUN/CREATININE RATIO 9; CALCIUM 9.2 MG/DL (8.5-10.1); CARBON DIOXIDE 28 MMOL/L (21-32); CHLORIDE 102 MMOL/L (98-107); CREATININE SERUM 0.81 MG/DL (0.60-1.30); GFR ESTIMATED > 60; GLUCOSE 93 MG/DL (70-105); POTASSIUM 4.2 MMOL/L (3.6-5.0); SODIUM 140 MMOL/L (135-145); TOTAL PROTEIN 7.8 GM/DL (6.4-8.2)
[2019-09-25 16:47] VITALS: BP 115/70
== END ==
LOC: SDC 13:10
PROVIDERS: ATTEND Family Medicine
DX: M05.79 Rheumatoid arthritis with rheumatoid factor of multiple sites without organ or systems involvement (principal); Z79.899 Other long term (current) drug therapy
CPT/HCPCS: 36415; 80053; 85027; 85652; 86141; 96365; 96366; Q5102

== ENCOUNTER → 2019-11-06 | Outpatient (CLI) | payer MEDICAID ==
[~2019-11-06] VITALS: Ht 165.1 cm; Wt 78.2 kg
[~2019-11-06] MED LIST changes: -ACET-77 PO; +ACET-78 PO
[2019-11-06 16:15] VITALS: BP 125/77
== END ==
LOC: SDC 12:44
PROVIDERS: ATTEND Family Medicine
DX: M05.79 Rheumatoid arthritis with rheumatoid factor of multiple sites without organ or systems involvement (principal); Z79.899 Other long term (current) drug therapy
CPT/HCPCS: 96365; 96366; Q5102

== ENCOUNTER → 2019-12-18 | Outpatient (CLI) | payer MEDICAID ==
[~2019-12-18] VITALS: Ht 165.1 cm; Wt 78.2 kg
[2019-12-18 13:43] LABS: HEMOGLOBIN 12.4 G/DL (11.5-16.0); MEAN PLATELET VOLUME 9.2 FL (7.4-10.4); RED CELL DISTRIBUTION WIDTH 13.8 % (10.0-14.5); WHITE BLOOD COUNT 6.4 10^3/uL (4.3-11.0)
[2019-12-18 14:07] LABS: ALANINE AMINOTRANSFERASE 24 U/L (0-55); ALBUMIN 4.3 GM/DL (3.2-4.5); ALKALINE PHOSPHATASE 51 U/L (40-136); BILIRUBIN,TOTAL 0.5 MG/DL (0.1-1.0); BUN/CREATININE RATIO 8; CALCIUM 9.8 MG/DL (8.5-10.1); CARBON DIOXIDE 21 MMOL/L (21-32); CHLORIDE 102 MMOL/L (98-107); GFR ESTIMATED > 60; GLUCOSE 83 MG/DL (70-105); POTASSIUM 3.7 MMOL/L (3.6-5.0); SODIUM 137 MMOL/L (135-145); TOTAL PROTEIN 8.4 GM/DL (6.4-8.2)
--- NOTE | 2019-12-18 15:30 | NUR ---
Faxed labs to Dr. Brice and to [facility].
[2019-12-18 16:10] VITALS: BP 120/79
== END ==
LOC: SDC 13:10
PROVIDERS: ATTEND Family Medicine
DX: M05.79 Rheumatoid arthritis with rheumatoid factor of multiple sites without organ or systems involvement (principal); Z79.899 Other long term (current) drug therapy
CPT/HCPCS: 36415; 80053; 85027; 85652; 86141; 96365; 96366; Q5102

== ENCOUNTER → 2020-02-03 | Outpatient (CLI) | payer MEDICAID ==
[~2020-02-03] VITALS: Ht 165.1 cm; Wt 78.2 kg
[~2020-02-03] MED LIST changes: +INFLIXIMAB DYYB IV NR; +NORMAL SALINE IV NR
[2020-02-03 13:15] VITALS: BP 117/71
[2020-02-03 13:37] LABS: HEMOGLOBIN 12.8 G/DL (11.5-16.0); WHITE BLOOD COUNT 6.5 10^3/uL (4.3-11.0)
[2020-02-03 13:51] LABS: ALBUMIN 4.2 GM/DL (3.2-4.5); CHLORIDE 102 MMOL/L (98-107); POTASSIUM 3.8 MMOL/L (3.6-5.0); SODIUM 137 MMOL/L (135-145)
[2020-02-03 13:52] LABS: CALCIUM 9.2 MG/DL (8.5-10.1)
[2020-02-03 13:53] LABS: GLUCOSE 81 MG/DL (70-105); TOTAL PROTEIN 8.1 GM/DL (6.4-8.2)
[2020-02-03 13:55] LABS: BILIRUBIN,TOTAL 0.4 MG/DL (0.1-1.0); CARBON DIOXIDE 26 MMOL/L (21-32)
[2020-02-03 13:57] LABS: ALKALINE PHOSPHATASE 51 U/L (40-136); CREATININE SERUM 0.81 MG/DL (0.60-1.30); GFR ESTIMATED > 60
[2020-02-03 13:58] LABS: BUN/CREATININE RATIO 9
[2020-02-03 14:00] LABS: ALANINE AMINOTRANSFERASE 23 U/L (0-55)
== END ==
LOC: SDC 13:09
PROVIDERS: ATTEND Family Medicine
DX: M05.79 Rheumatoid arthritis with rheumatoid factor of multiple sites without organ or systems involvement (principal); Z79.899 Other long term (current) drug therapy
CPT/HCPCS: 36415; 80053; 85027; 85652; 86141; Q5102

== ENCOUNTER 2020-08-10 18:40 | Emergency (ER) | payer MEDICAID ==
[~2020-08-10] VITALS: Ht 165.1 cm; Wt 77.1 kg
[~2020-08-10 18:40] MED LIST changes: -INFLIXIMAB DYYB IV NR; -INFLIXIMAB DYYB IV ONE; -NORMAL SALINE IV NR; -NORMAL SALINE IV ONE
--- NOTE | 2020-08-10 20:01 | ED Respiratory ---
General Chief Complaint: Cough/Cold/Flu Symptoms Stated Complaint: FEVER,HEADACHE,COUGH Nursing Triage Note: PT AMBULATE TO ROOM 05 WITH C/O HEADACHE, CONGESTION, CHEST PRESSURE WHEN WALKING, RUNNING NOSE. PT REPORTS SHE HAS RA AND IS ON IMMUNOSUPPRESSION MEDICATIONS. Source: patient History of Present Illness Date Seen by Provider: Aug 10, 2020 Time Seen by Provider: 19:12 Initial Comments PT ARRIVES VIA POV FROM HOME STATES SHE BEGAN FEELING SICK 1 WEEK AGO C/O SUBJECTIVE FEVER/SWEATS/CHILLS C/O NON PRODUCTIVE COUGH C/O NASAL CONGESTIONS C/O CHEST HEAVINESS C/O SHORTNESS OF BREATH C/O HEADACHE C/O FATIGUE C/O DECREASED SMELL AND TASTE C/O NAUSEA, NO VOMITING C/O DIARRHEA--2-3 EPISODES TODAY NO ABDOMINAL PAIN C/O DECREASED APPETITE, BUT DRINKING FLUIDS WELL AND VOIDING A NORMAL AMOUNT PT STATES SHE WAS EXPOSED TO COVID-19 LAST MONDAY AT [facility] IS ALSO ILL WITH SAME SYMPTOMS NEITHER PT NOR HAVE BEEN TESTED FOR COVID, OR SOUGHT CARE, UNTIL PT CAME TO [facility] SYMPTOMS GRADUALLY GETTING WORSE. HAS NOT TAKEN ANYTHING FOR SYMPTOMS PT HAS RHEUMATOID ARTHRITIS, AND IS ON METHOTREXATE AND ENBREL. PT DID HAVE A FLU SHOT IN JUNE PCP: DR. SMITH AT [facility] Allergies and Home Medications Allergies Coded Allergies: morphine (Unverified Allergy, Mild, 11/04/09) Home Medications Acetaminophen 500 Mg Tablet, 500 MG PO UD Prescribed by: TALA THOMPSON on 05/05/17 134 Albuterol Sulfate 1 Puff Puff, 2 PUFF IH Q4H 1 PUFF = 90 MCG Prescribed by: KENNETH BERRY on 08/10/202134 Azithromycin 500 Mg Tablet, 500 MG PO DAILY Prescribed by: KENNETH BERYR on 08/10/202134 Benzonatate 100 Mg Capsule, 200 MG PO TID Prescribed by: KENNETH BERRY on 08/10/202134 Buspirone HCl 10 Mg Tablet, 10 MG PO HS Prescribed by: TALA THOMPSON on 05/05/17 134 Calcium Carbonate/Vitamin D3 1 Each Tablet, 1 EACH PO BID, (Reported) Cetirizine Hcl 5 Mg Tablet, 5 MG PO DAILY, (Reported) Dexamethasone 6 Mg Tablet, 6 MG PO DAILY Prescribed by: KENNETH BERRY on 08/10/202134 Estrogens Conjugated 0.3 Mg Tab, 0.3 MG PO DAILY, (Reported) Fluticasone/Salmeterol 1 Each Blst.w.dev, 1 EACH IH BID Prescribed by: KENNETH BERRY on 08/10/202134 Folic Acid 1 Mg Tab, 1 EACH PO DAILY, (Reported) Guaifenesin/Dextromethorphan 1 Each Tbmp.12hr, 1 EACH PO BID Prescribed by: KENNETH BERRY on 08/10/202134 Hydrocodone/Acetaminophen 1 Each Tablet, 1 TAB PO TID PRN for PAIN, (Reported) Levofloxacin 500 Mg Tablet, 500 MG PO DAILY Prescribed by: KENNETH BERRY on 05/21/172101 Methotrexate 2.5 Mg Tab, 2 TAB PO WEEKLY, (Reported) TAKES ON MONDAY EACH Multivitamins 1 Tab Tablet, 1 TAB PO DAILY, (Reported) Paroxetine Hcl 20 Mg Tablet, 40 MG PO DAILY, (Reported) Simvastatin 20 Mg Tablet, 20 MG PO HS, (Reported) Trazodone Hcl 50 Mg Tablet, 50 MG PO HS, (Reported) Valacyclovir Hcl 500 Mg Tablet, 1 TAB PO DAILY, (Reported) Patient Home Medication List Home Medication List Reviewed: Yes Review of Systems Review of Systems Constitutional: see HPI, chills, diaphoresis, fever, malaise, weakness EENTM: nose congestion; No throat pain Respiratory: cough, dyspnea on exertion; No phlegm; short of breath Cardiovascular: see HPI, chest pain Gastrointestinal: see HPI; No abdominal pain; diarrhea, loss of appetite, nausea; No vomiting Genitourinary: no symptoms reported; No decreased output Musculoskeletal: see HPI (BODY ACHES, R.A. PAIN) Skin: no symptoms reported Psychiatric/Neurological: See HPI, Headache Hematologic/Lymphatic: No Symptoms Reported Immunological/Allergic: see HPI Past Xlztmzo-Hkgbfs-Uslyeg Hx Past Med/Social Hx: Reviewed and Corrections made Patient Social History Alcohol Use: Denies Use Recreational Drug Use: No Smoking Status: Never a Smoker 2nd Hand Smoke Exposure: No Recent Foreign Travel: No Contact w/Someone Who Travel: No Recent Infectious Disease Expo: No Recent Hopitalizations: No Physical Abuse: No Sexual Abuse: No Mistreated: No Fear: No Immunizations Up To Date Tetanus Booster (TDap): Unknown PED Vaccines UTD: No Date of Pneumonia Vaccine: Nov 30, 2009 Date of Influenza Vaccine: Aug 14, 2017 Seasonal Allergies Seasonal Allergies: Yes Past Medical History Surgeries: Yes Hysterectomy, Orthopedic, 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 Respiratory: Yes Pneumonia Currently Using CPAP: No Currently Using BIPAP: No Cardiac: Yes High Cholesterol Neurological: No Reproductive Disorders: 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 0.0oz. 78.759789xu; 28.00 BMI Method:Stated General Appearance: WD/WN, no apparent distress, other (DOES NOT APPEAR DYSPNEIC OR ILL ON ARRIVAL. NO COUGH NOTED. 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, no motor/sensory deficits, alert, normal mood/affect, oriented x 3 Skin: normal color, warm/dry Focused Exam Lactate Level 08/10/20 20:03: Lactic Acid Level 1.45 Lactic Acid Level Laboratory Tests Test 08/10/20 20:03 Lactic Acid Level 1.45 MMOL/L (0.50-2.00) Progress/Results/Core Measures Suspected Sepsis Recent Fever Within 48 Hours: No Infection Criteria Present: None New/Unexplained Altered Menta: No Sepsis Screen: No Definite Risk SIRS Temperature: Pulse: 85 Respiratory Rate: 17 Laboratory Tests 08/10/20 20:03: White Blood Count 4.8 Blood Pressure 132 /79 Mean: 96 08/10/20 20:03: Lactic Acid Level 1.45 Laboratory Tests 08/10/20 20:03: Creatinine 0.83, INR Comment 0.9, Platelet Count 303, Total Bilirubin 0.3 Results/Orders Lab Results Laboratory Tests Test 08/10/20 20:03 08/10/20 20:21 Range/Units White Blood Count 4.8 4.3-11.0 10^3/uL Red Blood Count 4.22 3.80-5.11 10^6/uL Hemoglobin 13.4 11.5-16.0 g/dL Hematocrit 39 35-52 % Mean Corpuscular Volume 93 80-99 fL Mean Corpuscular Hemoglobin 32 25-34 pg Mean Corpuscular Hemoglobin Concent 34 32-36 g/dL Red Cell Distribution Width 13.0 10.0-14.5 % Platelet Count 303 130-400 10^3/uL Mean Platelet Volume 10.0 9.0-12.2 fL Immature Granulocyte % (Auto) 0 % Neutrophils (%) (Auto) 48 42-75 % Lymphocytes (%) (Auto) 40 12-44 % Monocytes (%) (Auto) 10 0-12 % Eosinophils (%) (Auto) 2 0-10 % Basophils (%) (Auto) 0 0-10 % Neutrophils # (Auto) 2.3 1.8-7.8 10^3/uL Lymphocytes # (Auto) 1.9 1.0-4.0 10^3/uL Monocytes # (Auto) 0.5 0.0-1.0 10^3/uL Eosinophils # (Auto) 0.1 0.0-0.3 10^3/uL Basophils # (Auto) 0.0 0.0-0.1 10^3/uL Immature Granulocyte # (Auto) 0.0 0.0-0.1 10^3/uL Erythrocyte Sedimentation Rate 26 0-30 MM/HR Prothrombin Time 12.1 L 12.2-14.7 SEC INR Comment 0.9 0.8-1.4 Activated Partial Thromboplast Time 33 24-35 SEC Sodium Level 137 135-145 MMOL/L Potassium Level 3.5 L 3.6-5.0 MMOL/L Chloride Level 100 98-107 MMOL/L Carbon Dioxide Level 24 21-32 MMOL/L Anion Gap 13 5-14 MMOL/L Blood Urea Nitrogen 8 7-18 MG/DL Creatinine 0.83 0.60-1.30 MG/DL Estimat Glomerular Filtration Rate > 60 BUN/Creatinine Ratio 10 Glucose Level 73 70-105 MG/DL Lactic Acid Level 1.45 0.50-2.00 MMOL/L Calcium Level 9.0 8.5-10.1 MG/DL Corrected Calcium 8.7 8.5-10.1 MG/DL Magnesium Level 1.8 1.6-2.4 MG/DL Total Bilirubin 0.3 0.1-1.0 MG/DL Aspartate Amino Transf (AST/SGOT) 34 5-34 U/L Alanine Aminotransferase (ALT/SGPT) 32 0-55 U/L Alkaline Phosphatase 53 40-136 U/L Lactate Dehydrogenase 214 125-220 U/L Total Creatine Kinase 43 29-168 U/L Creatine Kinase MB 1.0 <6.6 NG/ML Troponin I < 0.028 <0.028 NG/ML C-Reactive Protein High Sensitivity 0.36 0.00-0.50 MG/DL B-Type Natriuretic Peptide 16.3 <100.0 PG/ML Total Protein 8.1 6.4-8.2 GM/DL Albumin 4.4 3.2-4.5 GM/DL Monoscreen NEGATIVE NEGATIVE Urine Color YELLOW Urine Clarity CLEAR Urine pH 6.0 5-9 Urine Specific [place] <=1.005 1.016-1.022 Urine Protein NEGATIVE NEGATIVE Urine Glucose (UA) NEGATIVE NEGATIVE Urine Ketones NEGATIVE NEGATIVE Urine Nitrite NEGATIVE NEGATIVE Urine Bilirubin NEGATIVE NEGATIVE Urine Urobilinogen 0.2 < = 1.0 MG/DL Urine Leukocyte Esterase NEGATIVE NEGATIVE Urine RBC (Auto) NEGATIVE NEGATIVE Urine RBC NONE /HPF Urine WBC NONE /HPF Urine Crystals PRESENT H /LPF Urine Amorphous Sediment RARE DERRICK URATES H /LPF Urine Bacteria NEGATIVE /HPF Urine Casts NONE /LPF Urine Mucus NEGATIVE /LPF Urine Culture Indicated NO Coronavirus 2019 ([facility]) Positive H Negative Micro Results Microbiology 08/10/20 Influenza Types A,B Antigen (TEN) - Final, Complete My Orders Orders - KENNETH BERRY DO Ed Iv/Invasive Line Start (08/10/20 19:12) Ekg Tracing (08/10/20 19:12) O2 (08/10/20 19:12) Monitor-Rhythm Ecg Trace Only (08/10/20 19:12) Chest 1 View, Ap/Pa Only (08/10/20 19:12) BNP (08/10/20 19:12) Cbc With Automated Diff (08/10/20 19:12) Comprehensive Metabolic Panel (08/10/20 19:12) Creatine Kinase (08/10/20 19:12) Creatine Kinase Mb (08/10/20 19:12) Hs C Reactive Protein (08/10/20 19:12) Lactic Acid Analyzer (08/10/20 19:12) Magnesium (08/10/20 19:12) Monotest (08/10/20 19:12) Protime With Inr (08/10/20 19:12) Partial Thromboplastin Time (08/10/20 19:12) Ua Culture If Indicated (08/10/20 19:12) Blood Culture (08/10/20 19:12) Influenza A And B Antigens (08/10/20 19:12) Erythrocyte Sedimentation Rate (08/10/20 19:12) Troponin I (08/10/20 19:12) LDH (08/10/20 19:12) Covid 19 Inhouse Test (08/10/20 19:12) Dexamethasone Injection (Decadron Injec (08/10/20 20:00) Azithromycin Tablet (Zithromax Tablet) (08/10/20 21:45) Medications Given in ED Current Medications Medications Dose Ordered Sig/Tee Route Start Time Stop Time Status Last Admin Dose Admin Azithromycin 500 mg ONCE ONCE PO 08/10/20 21:45 08/10/20 21:46 DC 08/10/20 21:53 500 MG Dexamethasone Sodium Phosphate 6 mg ONCE ONCE IV 08/10/20 20:00 08/10/20 20:01 DC 08/10/20 20:10 6 MG Vital Signs/I&O 08/10/20 08/10/20 08/10/20 19:49 19:54 21:58 Temp 36.8 Pulse 85 89 Resp 17 17 B/P (MAP) 132/79 (96) 144/81 Pulse Ox 97 O2 Delivery Room Air Room Air Room Air Capillary Refill : Less Than 3 Seconds Blood Pressure Mean: 96 Progress Note : Progress Note PLACED IN ISOLATION ROOM PPE WORN AT ALL TIMES COVID-19 TESTING PERFORMED PT ADVISED OF NEED FOR QUARANTINE NO DYSPNEA NO COUGH NO HYPOXIA DURING ER STAY ECG Initial ECG Impression Date: Aug 10, 2020 Initial ECG Impression Time: 20:13 Initial ECG Rate: 77 Initial ECG Rhythm: Normal Sinus Diagnostic Imaging Comments CXR--PER RADIOLOGIST REPORT AT 2031 IMPRESSION: There is no evidence for active disease. Reviewed: Reviewed by Me Departure Impression Primary Impression: COVID-19 virus infection Additional Impressions: Rheumatoid arthritis IMMUNOSUPPRESSIVE MEDICATIONS Disposition: HOME, SELF-CARE Condition: Stable Departure-Patient Inst. Referrals: JP SMITH MD (PCP/Family) Primary Care Physician Patient Instructions: Coronavirus Disease 2019 (COVID-19) (DC), Preventing the Spread of an Infectious Disease Add. Discharge Instructions: LOTS OF CLEAR LIQUIDS--WATER, BROTH, JELLO, GATORADE TYLENOL 1 GRAM/ MOTRIN 800 MG 4 TIMES A DAY FOR PAIN OR FEVER ASPIRIN 325 MG DAILY FOLLOW UP WITH YOUR DR IN 4-5 DAYS IF NO BETTER, RETURN TO ER IF WORSE All discharge instructions reviewed with patient and/or family. Voiced understanding. Scripts Benzonatate (TESSALON PERLES) 100 Mg Capsule 200 MG PO TID, #50 CAP Prov: KENNETH BERRY DO 08/10/20 Azithromycin (Zithromax) 500 Mg Tablet 500 MG PO DAILY for 5 Days, #5 TAB Prov: KENNETH BERRY DO 08/10/20 Guaifenesin/Dextromethorphan (Mucinex Dm ER 1,200-60 mg Tab) 1 Each Tbmp.12hr 1 EACH PO BID, #20 EA Prov: KENNETH BERRY DO 08/10/20 Dexamethasone (Decadron) 6 Mg Tablet 6 MG PO DAILY, #10 TAB Prov: KENNETH BERRY DO 08/10/20 Albuterol Sulfate (PROAIR HFA) 1 Puff Puff 2 PUFF IH Q4H, #1 EA 1 PUFF = 90 MCG Prov: KENNETH BERRY DO 08/10/20 Fluticasone/Salmeterol (Advair 250-50 Diskus) 1 Each Blst.w.dev 1 EACH IH BID, #1 EA Prov: KENNETH BERRY DO 08/10/20 KENNETH BERRY DO Aug 10, 2020 20:01
--- NOTE | 2020-08-10 20:23 | Diagnostic Imaging Report ---
Portable erect AP chest at 756 hours. INDICATION: Congestion, chest pressure. FINDINGS: The heart size is within normal limits and stable when compared to 07/13/2017. The carotid bronchovascular markings in the right infrahilar region seen on the prior study are again visualized and no different. The lungs are generally clear. There is no sign of failure, pneumonia or pleural effusion to indicate an acute abnormality. The mediastinum is not widened. The osseous structures are intact. Fairly severe degenerative disease involving both shoulder joints is again noted. IMPRESSION: There is no evidence for active disease. Dictated by: Dictated on workstation # [id number]
[2020-08-10 20:45] LABS: BASOPHILS % (AUTO) 0 % (0-10); EOSINOPHILS # (AUTO) 0.1 10^3/uL (0.0-0.3); EOSINOPHILS % (AUTO) 2 % (0-10); HEMATOCRIT 39 % (35-52); HEMOGLOBIN 13.4 g/dL (11.5-16.0); LYMPHOCYTES # (AUTO) 1.9 10^3/uL (1.0-4.0); LYMPHOCYTES % (AUTO) 40 % (12-44); MEAN CORPUSCULAR HEMOGLOBIN 32 pg (25-34); MEAN CORPUSCULAR HGB CONC 34 g/dL (32-36); MEAN CORPUSCULAR VOLUME 93 fL (80-99); MONOCYTES # (AUTO) 0.5 10^3/uL (0.0-1.0); MONOCYTES % (AUTO) 10 % (0-12); NEUTROPHILS # (AUTO) 2.3 10^3/uL (1.8-7.8); NEUTROPHILS % (AUTO) 48 % (42-75); PLATELET COUNT 303 10^3/uL (130-400); WHITE BLOOD COUNT 4.8 10^3/uL (4.3-11.0)
[2020-08-10 20:50] LABS: BILIRUBIN,URINE NEGATIVE (NEGATIVE); CLARITY,URINE CLEAR; COLOR,URINE YELLOW; GLUCOSE, URINE (UA) NEGATIVE (NEGATIVE); KETONES,URINE NEGATIVE (NEGATIVE); LEUKOCYTE ESTERASE ,URINE NEGATIVE (NEGATIVE); NITRITE,URINE NEGATIVE (NEGATIVE); PROTEIN,URINE NEGATIVE (NEGATIVE)
[2020-08-10 20:51] LABS: INR 0.9 (0.8-1.4); PROTHROMBIN TIME PATIENT 12.1 SEC (12.2-14.7)
[2020-08-10 21:19] LABS: ALBUMIN 4.4 GM/DL (3.2-4.5); CHLORIDE 100 MMOL/L (98-107); POTASSIUM 3.5 MMOL/L (3.6-5.0); SODIUM 137 MMOL/L (135-145)
[2020-08-10 21:21] LABS: GLUCOSE 73 MG/DL (70-105); TOTAL PROTEIN 8.1 GM/DL (6.4-8.2)
[2020-08-10 21:22] LABS: CARBON DIOXIDE 24 MMOL/L (21-32); ERYTHROCYTE SEDIMENTATION RATE 26 MM/HR (0-30)
[2020-08-10 21:23] LABS: BILIRUBIN,TOTAL 0.3 MG/DL (0.1-1.0)
[2020-08-10 21:25] LABS: ALKALINE PHOSPHATASE 53 U/L (40-136); CREATININE SERUM 0.83 MG/DL (0.60-1.30); GFR ESTIMATED > 60
[2020-08-10 21:26] LABS: BUN/CREATININE RATIO 10
[2020-08-10 21:27] LABS: MAGNESIUM 1.8 MG/DL (1.6-2.4)
[2020-08-10 21:28] LABS: ALANINE AMINOTRANSFERASE 32 U/L (0-55); CREATINE KINASE 43 U/L (29-168)
[2020-08-10 21:29] LABS: AMORPHOUS SEDIMENT,UR RARE AMOR URATES /LPF; BACTERIA,URINE NEGATIVE /HPF
[2020-08-10] MEDS ORDERED: GUAI1TBM19 PO (21:35)
[2020-08-10] MEDS ORDERED: DEXA6TAB6 PO (21:35)
[2020-08-10] MEDS ORDERED: BENZ100C18 PO (21:35)
[2020-08-10] MEDS ORDERED: FLUT1DIS26 IH (21:35)
[2020-08-10] MEDS ORDERED: AZIT500T PO (21:35)
[2020-08-10] MEDS ORDERED: RT-ALBUINH IH (21:35)
[2020-08-10] MEDS ORDERED: AZITHROMYCIN 250 MG TAB (ZITHROMAX) PO ONE (21:45)
[2020-08-10 21:58] VITALS: BP 144/81
== END 2020-08-10 21:58 | disposition home or self-care (01) ==
LOC: EDUNIT# 18:40 → ER 18:41
DX: U07.1 COVID-19 (principal); M06.9 Rheumatoid arthritis, unspecified; E78.00 Pure hypercholesterolemia, unspecified; F41.9 Anxiety disorder, unspecified; Z88.5 Allergy status to narcotic agent
CPT/HCPCS: 36415; 71045; 80053; 81000; 82550; 82553; 83605; 83615; 83735; 83880; 84484; 85025; 85610; 85652; 85730; 86141; 86308; 87040; 87635; 87804; 93005; 93041

== ENCOUNTER → 2021-01-26 | Outpatient (CLI) | payer MEDICAID ==
[~2021-01-26] MED LIST changes: +AZIT500T PO; +BENZ100C18 PO; +DEXA6TAB6 PO; +FLUT1DIS26 IH; +GUAI1TBM19 PO; +RT-ALBUINH IH
--- NOTE | 2021-01-26 16:04 | Diagnostic Imaging Report ---
INDICATION: Routine screening. COMPARISON is made with prior mammograms from 07/16/2019 and 02/08/2017. 2-D and 3-D bilateral screening mammography was performed with CAD. Both breasts are heterogeneously dense, limiting the sensitivity of mammography. The parenchymal pattern is stable. No mass or malignant appearing microcalcifications are seen. Axillae are unremarkable. IMPRESSION: BI-RADS Category 1 No mammographic features suspicious for malignancy are identified. ACR BI-RADS Category 1: Negative. Result letter will be mailed to the patient. Note: At least 10% of breast cancer is not imaged by mammography. Dictated by: Dictated on workstation # [id number]
== END ==
LOC: RAD 13:05
PROVIDERS: ATTEND Obstetrics & Gynecology
DX: Z12.31 Encounter for screening mammogram for malignant neoplasm of breast (principal)
CPT/HCPCS: 77063; 77067

== ENCOUNTER → 2022-01-27 | Outpatient (CLI) | payer MEDICAID ==
--- NOTE | 2022-01-28 10:44 | Diagnostic Imaging Report ---
Indication: Bilateral 3-D digital screening with CAD. CAD is utilized. The current study was also evaluated with a Computer Aided Detection (CAD) system. COMPARISON: 01/2021, 06/2019 and 01/2017 FINDINGS: Density 2. No breast mass, spiculated lesion, architectural distortions or findings of malignancy. There has been no change. IMPRESSION: BI-RADS Category 1 ACR BI-RADS Category 1: Negative. Result letter will be mailed to the patient. Note: At least 10% of breast cancer is not imaged by mammography. Dictated by: Dictated on workstation # [id number]
== END ==
LOC: RAD 10:46
PROVIDERS: ATTEND Obstetrics & Gynecology
DX: Z12.31 Encounter for screening mammogram for malignant neoplasm of breast (principal)
CPT/HCPCS: 77063; 77067

== ENCOUNTER → 2023-02-17 | Outpatient (CLI) | payer MEDICAID ==
[~2023-02-17] MED LIST changes: +ALBU8.5H6 IH; -RT-ALBUINH IH
--- NOTE | 2023-02-17 15:13 | Diagnostic Imaging Report ---
INDICATION: Routine screening. COMPARISON: 01/27/2022 and 01/26/2021. TECHNIQUE: 2D and 3D bilateral screening mammography was performed with CAD. FINDINGS: Both breasts are heterogeneously dense, limiting the sensitivity of mammography. The parenchymal pattern is stable. No mass or malignant-appearing microcalcifications are seen. The axillae are unremarkable. IMPRESSION: No mammographic features suspicious for malignancy are identified. ACR BI-RADS Category 1: Negative. Result letter will be mailed to the patient. Note: At least 10% of breast cancer is not imaged by mammography. Dictated by: Dictated on workstation # [id number]
== END ==
LOC: RAD 10:00
PROVIDERS: ATTEND Nurse Practitioner Women's Health
DX: Z12.31 Encounter for screening mammogram for malignant neoplasm of breast (principal); Z01.419 Encounter for gynecological examination (general) (routine) without abnormal findings
CPT/HCPCS: 77063; 77067